=== PATIENT | male | born 1970 | race Caucasian/White ===

== ENCOUNTER 2016-07-15 10:25 | Emergency (ER) | payer SELFPAY ==
[~2016-07-15] VITALS: Ht 175.3 cm; Wt 104.5 kg
[~2016-07-15 10:25] MED LIST: CEPH500 PO; FURO40 PO; METH10 PO
[2016-07-15] MEDS ORDERED: IBUPROFEN 800 MG TABLET PO ONE (11:00)
[2016-07-15 11:16] VITALS: BP 128/82
== END 2016-07-15 13:08 | disposition home or self-care (01) ==
LOC: EMS 10:26
DX: S43.402A Unspecified sprain of left shoulder joint, initial encounter (principal); F12.90 Cannabis use, unspecified, uncomplicated; V49.40XA Driver injured in collision with unspecified motor vehicles in traffic accident, initial encounter; Y93.89 Activity, other specified; Y92.89 Other specified places as the place of occurrence of the external cause; Y99.8 Other external cause status
CPT/HCPCS: 29105; 99284

== ENCOUNTER 2018-03-10 08:54 | Emergency (ER) | payer OTHER ==
[~2018-03-10] VITALS: Ht 170.2 cm; Wt 77.3 kg
[~2018-03-10 08:54] MED LIST changes: -CEPH500 PO; -FURO40 PO
[2018-03-10 11:53] VITALS: BP 156/86
== END 2018-03-10 12:10 | disposition home or self-care (01) ==
LOC: EMS 08:54
DX: S20.211A Contusion of right front wall of thorax, initial encounter (principal); S67.21XA Crushing injury of right hand, initial encounter; W05.1XXA Fall from non-moving nonmotorized scooter, initial encounter; Y93.89 Activity, other specified; Y92.89 Other specified places as the place of occurrence of the external cause; Y99.8 Other external cause status
CPT/HCPCS: 71100

== ENCOUNTER 2018-07-25 07:40 | Emergency (ER) | payer OTHER ==
[~2018-07-25] VITALS: Ht 177.8 cm; Wt 93.6 kg
[2018-07-25] MEDS ORDERED: KETOROLAC TROMETHAMINE 60 MG/2 ML VIAL IM ONE (08:30)
[2018-07-25 09:37] VITALS: BP 148/88
== END 2018-07-25 09:38 | disposition home or self-care (01) ==
LOC: EMS 07:43
DX: M25.511 Pain in right shoulder (principal); F17.210 Nicotine dependence, cigarettes, uncomplicated; F12.90 Cannabis use, unspecified, uncomplicated; F11.90 Opioid use, unspecified, uncomplicated; Z79.899 Other long term (current) drug therapy; V49.49XA Driver injured in collision with other motor vehicles in traffic accident, initial encounter; Y93.89 Activity, other specified; Y92.488 Other paved roadways as the place of occurrence of the external cause; Y99.8 Other external cause status
CPT/HCPCS: 73030; 96372; 99283; 99406; J1885